=== PATIENT | male | born 1935 | race Caucasian/White ===

== ENCOUNTER → 2017-12-16 | Day surgery (SDC) | payer MEDICARE, OTHER ==
[~2017-12-16] MED LIST: Benzocaine 20% Oral Spray 59.2 ML Canister MUCMEM ONE; Benzocaine 20% Oral Spray 59.2 ML Canister ONE; Lactated Ringers 1,000 ML IV SCH; Midazolam 1 MG/ML 2 ML SDV IV ONE; Midazolam 1 MG/ML 2 ML SDV IVPUSH ONE; Midazolam 1 MG/ML 2 ML SDV ONE; fentaNYL 100 MCG/2 ML SDV IV ONE; fentaNYL 100 MCG/2 ML SDV IVPUSH ONE; fentaNYL 100 MCG/2 ML SDV ONE
[2017-12-16 11:02] VITALS: BP 107/71
--- NOTE | 2017-12-17 07:05 | OR ---
DATE: 12/16/2017 PREOPERATIVE DIAGNOSIS: Gastroesophageal reflux disease symptoms and foreign body sensation in the throat. POSTOPERATIVE DIAGNOSIS: Gastroesophageal reflux disease symptoms and foreign body sensation in the throat. PROCEDURE: EGD with photos. ANESTHESIA: Conscious sedation with IV Versed. SPECIMEN: None. 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 RECOMMENDATIONS: Followup EGD is needed. Continue on his proton pump inhibitor. INDICATION FOR PROCEDURE: This 82-year-old male has had some GERD symptoms. He is pretty well controlled; however, since being placed on a proton pump inhibitor, his main complaint is some foreign body sensation in the left side of the hypopharynx. He states he is able to feel something kind of come up within the left side of the throat. DESCRIPTION OF PROCEDURE: After adequate preparation, a gastroscope was inserted into the mouth. A good examination of the hypopharynx was accomplished. 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 There are no masses or abnormalities located in the hypopharynx area. Vocal cords appeared to be normal. The scope was advanced into the esophagus, and at the EG junction, he shows a 2-cm hiatal hernia with only minimal reflux symptoms or changes in the epithelium. A biopsy was not taken, a photograph was. The scope was advanced into the stomach. Both forward and retroflexed views were done and are normal. The scope was advanced through the pylorus into the duodenum and the 1st and 2nd portion were also normal. Air was suctioned from the stomach and the scope removed. [facility] /[id number]
== END ==
LOC: DL.ENDO 07:18
PROVIDERS: ATTEND Surgery
DX: K20.9 Esophagitis, unspecified (principal); K44.9 Diaphragmatic hernia without obstruction or gangrene; K21.9 Gastro-esophageal reflux disease without esophagitis; Z79.899 Other long term (current) drug therapy
CPT/HCPCS: 43235; J2250; J3010; J7120

== ENCOUNTER 2022-09-30 09:43 | Emergency (ER) | payer OTHER, MEDICARE ==
[2022-09-30 09:59] VITALS: BP 137/69; PULSE 84
== END 2022-09-30 11:01 | disposition home or self-care (01) ==
LOC: DL.ED 09:43
DX: G45.9 Transient cerebral ischemic attack, unspecified (principal); K21.9 Gastro-esophageal reflux disease without esophagitis; E66.9 Obesity, unspecified; Z68.28 Body mass index [BMI] 28.0-28.9, adult; Z79.899 Other long term (current) drug therapy; Z79.82 Long term (current) use of aspirin; Z95.1 Presence of aortocoronary bypass graft
CPT/HCPCS: 36415; 70450; 80053; 81003; 84484; 85025; 93005; 93010; 99284

== ENCOUNTER 2024-11-13 12:47 | Emergency (ER) | payer OTHER ==
[2024-11-13 12:55] VITALS: BP 151/94; PULSE 109
[2024-11-13] MEDS: cefTRIAXone 1 GM, Lidocaine 1% 2.1 ML IM ONE (13:04)
[2024-11-13] MEDS: Take Home: Doxycycline 100 MG Cap, 4 Cap Pack PO ONE (13:05)
== END 2024-11-13 13:12 | disposition home or self-care (01) ==
LOC: DL.ED 12:47
DX: J18.9 Pneumonia, unspecified organism (principal); I48.91 Unspecified atrial fibrillation; I25.2 Old myocardial infarction; Z95.5 Presence of coronary angioplasty implant and graft; Z79.82 Long term (current) use of aspirin; Z79.899 Other long term (current) drug therapy
CPT/HCPCS: 96372; 99283; 99284; A9270; J0696; J2003